=== PATIENT | male | born 1955 | race Caucasian/White ===

== ENCOUNTER 2022-05-17 13:54 | Outpatient (CLI) | payer MEDICARE, SELFPAY ==
--- NOTE | ~2022-05-17 | MR_ITS ---
EXAMINATION: MR knee LT wo con DATE: 05/17/2022 14:31 INDICATION: Left knee pain. TECHNIQUE: Magnetic resonance imaging (MRI) of the left knee was performed without intravenous contra st. Sequences included axial PD-weighted FS FSE, coronal PD-weighted FSE and PD-weighted FS FSE, sagi ttal PD-weighted FSE, and sagittal T2-weighted FS FSE. COMPARISON: None. FINDINGS: Medial compartment: Oblique undersurface tear of the medial meniscus at the junction of the posterior horn and body. Lateral compartment: Meniscus and cartilage intact. Patellofemoral compartment: Cartilage and retinacula intact. Ligaments and tendons: ACL, PCL, MCL, and LCL are intact. Extensor and flexor tendons are intact. Fluid: Small Harrell's cyst. No significant knee joint effusion. Osseous/other: Marrow signal is benign and homogenous. IMPRESSION: 1. Oblique undersurface tear of the medial meniscus, at the junction of the posterior horn and body. Reviewed, dictated and finalized at location K. IMPRESSION: 1. Oblique undersurface tear of the medial meniscus, at the junction of the pos terior horn and body.
== END 2022-05-17 13:55 | disposition home or self-care (01) ==
PROVIDERS: Visit Provider Nurse Practitioner Family
DX: M25.562 Pain in left knee (principal); S83.242A Other tear of medial meniscus, current injury, left knee, initial encounter
CPT/HCPCS: 73721

== ENCOUNTER 2022-06-26 00:12 | Day surgery (SDC) | payer MEDICARE, SELFPAY ==
--- NOTE | 2022-06-23 15:37 | PC.NURSE ---
Report to the Outpatient Waiting Room, entrance under the green pavilion located off [facility], at time __0600 on date __06/26/22 . OR Time: _0800 . - You and your visitor will be asked to self-screen and do not enter if you have any COVID symptoms. - Only one visitor and NO children visitors are allowed at this time. - The patient visitor is requested to leave or wait in car when not with patient due to restrictions. - A mask is required within the hospital. Patients may have clear liquids (water, carbonated beverages, clear teas, apple juice) until 3 hours prior to surgery with a maximum of 20 ounces. - No food from midnight until time of surgery - Infants may have breast milk until 4 hours before surgery, infant formula 6 hours prior to surgery. - Children will be allowed to drink immediately following surgery. If applicable, please bring a bottle or sippy cup to assist with drinking. Juice, water, soda, and popsicles are readily available. For infants on formula, please bring formula the day of surgery. Pacifiers are allowed. Take the following medications with a SIP of water the morning of surgery: EYE DROP Medications to discontinue per physician ALL VITAMINS AND SUPPLEMENTS 3 DAYS PRE OP Date to take last dose__06/23/22 Please no make-up, nail cambodian, hairspray, perfume, deodorant, or body powder the day of surgery. No jewelry (including any body piercings) or valuables the day of surgery, leave them at home. Please take a shower or bath the night before, or the morning of, surgery with an antibacterial soap. Wear comfortable, loose fitting clothing. Children are encouraged to wear pajamas. - Jewelry must be removed prior to entering the operating room. Rings and piercings that are not removed may be cut off. - The hospital will not accept responsibility for valuables. - Please leave all valuables, including medications, at home the day of surgery. If you are going home after surgery, a licensed limb driver must drive you home. - NO public transportation without another adult. - We recommend that an adult stay with you for 24 hours following discharge. - We also recommend that you do not drive, make important decision, drink alcoholic beverages, or take any drugs that were not prescribed by your health care provider for at least 24 hours after your discharge time. For Pediatric surgeries, we recommend two adults accompany the child home (only one inside the building at this time). Follow any additional instructions given to you from your surgeon. If you or anyone in your household have experienced Covid symptoms in the past week, please notify your surgeon or the nurse liaison at the phone number below for possible testing. Telephone instructions given to _PATIENT and asked if any additional questions and then verbalized understanding. Patient advised to call surgeon office or pre surgery nurse liaison [phone] if any additional questions.
[2022-06-23 15:49] VITALS: BMI 28.1
[2022-06-26] VITALS (8 sets, daily range): BP systolic 110–129; BP diastolic 65–84; PULSE 47–71; RESP 12–18; TEMP 36.1–36.2; O2SAT 94–100
--- NOTE | 2022-06-26 05:49 | ECG_ITS ---
Measurements Intervals [place] Rate: 46 P: 50 RI: 166 QRS: -22 QRSD: 91 T: -7 QT: 414 QTc: 365 Interpretive Statements SINUS BRADYCARDIA MINIMAL VOLTAGE CRITERIA FOR LVH, CONSIDER NORMAL VARIANT NONSPECIFIC ST AND T-WAVE ABNORMALITY BORDERLINE ECG NO PREVIOUS ECG AVAILABLE FOR COMPARISON Electronically Signed On 06-26-2022 15:15:17 CDT by Aniket Julian M.D.
[2022-06-26] MEDS: ACETAMINOPHEN 500 MG TABLET 1000 MG PO (06:31)
[2022-06-26] MEDS: KETOROLAC 15 MG/ML VIAL (*BKC) IV PUSH (06:33)
[2022-06-26] MEDS: LACTATED RINGERS 1,000 ML 30 ML IV CONT (06:40)
--- NOTE | 2022-06-26 07:05 | P.PNAN_ITS ---
Anes - Initial Pre Proc Eval Procedure: Operation Date: 06/26/22 07:30 Proposed Procedures p Left Knee Arthroscopy, Debride Meniscus, Synovectomy, Chondroplasty, Proceed As Indicated - Daniel Stewart MD Date/Time: 06/26/22 07:05 Surgeon: Daniel Stewart MD Pre Op Diagnosis: lft kn pn,lft meniscus tr,condromalacia,synovitis Patient Data Age: 66 Gender: M Height: 1.91 m Weight: 102.1 kg Allergies Allergy/AdvReac Type Severity Reaction Status Date / Time ampicillin [From Unasyn] Allergy Unknown Rash Verified 06/23/22 15:24 sulbactam [From Unasyn] Allergy Unknown Rash Verified 06/23/22 15:24 Sulfa (Sulfonamide Allergy Unknown Verified 06/23/22 15:26 Antibiotics) Home Medications Medication Instructions Recorded Confirmed Type finasteride 5 mg tablet 5 mg PO DAILY 05/12/22 06/23/22 History glucosamine sulfate 500 mg tablet 500 mg PO DAILY 05/12/22 06/23/22 History (Glucosamine) multivitamin 1 tablet PO DAILY 05/12/22 06/23/22 History olmesartan 5 mg tablet (Benicar) 10 mg PO DAILY 05/12/22 06/23/22 History omega-3 fatty acids-fish oil 300 1 cap PO DAILY 05/12/22 06/23/22 History mg-500 mg capsule (Fish Oil) rosuvastatin 5 mg tablet (Crestor) 5 mg PO DAILY 05/12/22 06/23/22 History timolol maleate 0.5 % eye drops 1 drp EACH EYE DAILY 06/23/22 06/23/22 History hydrocodone 5 mg-acetaminophen 325 1 tablet PO Q6H PRN pain #30 tabs 06/25/22 Rx mg tablet ondansetron 8 mg disintegrating 8 mg PO Q6-8H PRN nausea and 06/25/22 Rx tablet vomiting #10 tabs sennosides 8.6 mg-docusate sodium 1 tab-cap PO BID #30 tabs 06/25/22 Rx 50 mg tablet Patient hx anesthesia problems: none Family hx anesthesia problems: none Results Review: All pre-operative results and documents have been reviewed as part of the pre-o perative evaluation. [facility] Past Medical History Medical History (Updated 06/25/22 @ 12:58 by Tadeo Williamson MD) Hypercholesteremia Hypertension Left knee pain Medial meniscus tear Family History Family History Unknown Diabetes mellitus Hypertension Social History Social History Smoking status: Never smoker Alcohol intake: current Alcohol use details: 1 drink a month Substance use: never Living arrangements: with family Additional occupation/education comments: [employer] Gender identity (if verbalized by the patient): Male Spiritual care concerns: No Anes - Eval Final PreProcedure Day of Procedure 06/26/22 07:05 Patient weight: normal Heart: regular rate and rhythm Lungs: clear to auscultation Airway: Mallampati scale class II Neurological: alert and oriented Last oral intake: >/= 8 hours ASA classification: II Emergent: no Anesthetic plan: proceed Anesthesia type and monitoring: general LMA and standard monitoring Results Review: All pre-operative results and documents have been reviewed as part of the pre- operative evaluation. Informed Consent: The patient's anesthetic plan and its attendant risks and benefits were d iscussed with the patient/family/POA. Questions were solicited and answers provided to the satisfaction of the patient/family/POA.
--- NOTE | 2022-06-26 07:21 | WPDHPUPDATE1 ---
History and Physical Update Update Date/Time: 06/26/22 07:21 History and Physical has been reviewed, including an updated exam of the patient. There are NO changes in the patient's condition. Risks, benefits, and alternatives have been discussed and questions answered. Patient agrees to proceed with procedure.
[2022-06-26] MEDS: ceFAZolin 2 GM/D5W 50 ML 2 GM/50 ML BAG IVPB (07:34)
[2022-06-26] MEDS: BUPIVACAINE HCL 0.25% PF 30 ML VIAL 10 ML INFILTRATE (08:05)
[2022-06-26] MEDS: BUPIVACAINE/EPINEPHRINE 0.25% 50 ML VIAL 10 ML INFILTRATE (08:05)
--- NOTE | 2022-06-26 08:43 | SUR.PREOP ---
0700: crutch training reviewed w/ pt and spouse. pt states he has a walker that he will use post op. pt states has a pair of crutches at home should he need to use them.
--- NOTE | 2022-06-26 09:26 | P.OP_ITS ---
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 MRI shows meniscus tear and minimal degenerative changes. Patient has failed conservative treatment and presents for operative treatment. Findings Left knee posterior horn and body medial meniscus tear, 50% of width. Posterior horn and root tear of the lateral meniscus, 25%. Extensive anterior synovitis and fat-pad thickening with medial and lateral hypertrophic plica and synovium. Grade 2 chondromalacia patella articular surface, grade 1 chondromalacia femoral trochlea, grade 2 chondromalacia medial femoral condyle. Lateral compartment otherwise intact. ACL and PCL intact. Description of Procedure Informed consent given by patient. Operative extremity marked in preoperative holding area. Patient received intravenous antibiotics. Patient brought to operating room and underwent general anesthetic by anesthesia team. Positioned supine on operating room table. Left leg placed into a posterior thigh leg osei. Foot of the table dropped to 90? and right leg padded out of the field. Time-out performed confirming patient, site of surgery and plan. Left knee prepped and draped in usual sterile surgical fashion using ChloraPrep skin solution. Standard arthroscopic portals made by using a 11 blade knife for the anterior lateral portal 1st. Capsule penetrated bluntly. Camera and inflow started. The below operative findings noted. Intra-articular visualization used to position the anterior medial portal using 22 gauge spinal needle. A 11 blade knife used for the skin and blunt penetration of the capsule. 4.7 millimeter arthroscopic shaver introduced and partial medial meniscectomy of the loose and torn portion performed. Shaver then positioned in the lateral compartment and partial lateral meniscectomy performed. Edge of meniscus completed with arthroscopic Wand. Arthroscopic Wand used to perform chondroplasty of the patellofemoral articulation and the medial femoral condyle. Shaver reintroduced and a major synovectomy performed of the anterior fat pad and extensive synovium as well as medial and lateral plica. Bleeding points coagulated with Wand. Knee inspected, no loose pieces noted. 1 liter of irrigant infused and suction out. Arthroscopic cannulas removed. Skin closed with 4 O nylon interrupted suture. Local anesthetic with 0.25% Marcaine. Sterile dressing applied. Patient awoken from anesthesia, extubated and taken to recovery room in stable condition. All sponge needle and instrument counts correct at the end of the case. Estimated Blood Loss -5.0 Tourniquet Time 0 Drains No Packing No Pathology None sent Complications None Condition Stable Disposition PACU
[2022-06-26] MEDS: oxyCODONE HCL (*CRX) 5 MG TAB IR PO (10:29)
== END 2022-06-26 11:25 | disposition home or self-care (01) ==
PROVIDERS: Visit Provider Orthopaedic Surgery
PROC: (CPT 29870; principal; 2022-06-26 07:30)
DX: S83.242A Other tear of medial meniscus, current injury, left knee, initial encounter (principal); M25.562 Pain in left knee; G89.29 Other chronic pain; M22.42 Chondromalacia patellae, left knee
CPT/HCPCS: 29881; 93005; A9270; J0690; J1100; J1885; J2250; J2405; J2704; J3010; J7120

== ENCOUNTER 2023-09-28 10:50 | Outpatient (CLI) | payer MEDICARE, SELFPAY | END 2023-09-28 10:51 | disposition home or self-care (01) | LOC: ANHAUDIO 10:54 | PROVIDERS: Visit Provider Otolaryngology | DX: H93.19 Tinnitus, unspecified ear (principal); H90.3 Sensorineural hearing loss, bilateral | CPT/HCPCS: 92557; 92567 ==